=== PATIENT | male | born 1965 | race African-American/Black ===

== ENCOUNTER 2022-08-14 19:22 | Emergency (ER) | payer OTHER ==
[~2022-08-14] VITALS: Ht 180.3 cm; Wt 79.8 kg
[2022-08-14] MEDS ORDERED: TETANUS-DIPTH-ACEL PERTUSSIS 0.5ML SYR Tdap IM ONE (20:15)
[2022-08-14] MEDS ORDERED: KETOROLAC TROMETH 60MG/2ML VIAL IM ONE (20:15)
[2022-08-15] MEDS ORDERED: CEPH-510 PO (00:29)
[2022-08-15] MEDS ORDERED: AMOX-277 PO (00:29)
[2022-08-15] MEDS ORDERED: IBUP800T26 PO (00:29)
[2022-08-15 04:03] VITALS: BP 122/78
== END 2022-08-15 04:07 | disposition home or self-care (01) ==
LOC: ER 19:22
DX: L03.211 Cellulitis of face (principal)
CPT/HCPCS: 70140; 70486; 90471; 90715; 96372; 99285; J1885

== ENCOUNTER 2022-09-07 06:40 | Emergency (ER) | payer OTHER ==
[~2022-09-07] VITALS: Ht 180.3 cm; Wt 86.3 kg
[~2022-09-07 06:40] MED LIST: AMOX-277 PO; CEPH-510 PO; IBUP800T26 PO
[2022-09-07 07:49] VITALS: BP 148/87
[2022-09-07] MEDS ORDERED: ERY05OO OP (07:57)
[2022-09-07] MEDS ORDERED: BACDST PO (07:57)
== END 2022-09-07 08:12 | disposition home or self-care (01) ==
LOC: ER 06:40
DX: H00.034 Abscess of left upper eyelid (principal); H00.014 Hordeolum externum left upper eyelid; Z79.899 Other long term (current) drug therapy

== ENCOUNTER 2022-09-09 16:59 | Emergency (ER) | payer OTHER ==
[~2022-09-09] VITALS: Ht 180.3 cm; Wt 82.2 kg
[~2022-09-09 16:59] MED LIST changes: +BACDST PO; +ERY05OO OP
[2022-09-09 17:20] VITALS: BP 100/60
== END 2022-09-09 18:04 | disposition left against medical advice (07) ==
LOC: ER 16:59
DX: H57.12 Ocular pain, left eye (principal); Z53.21 Procedure and treatment not carried out due to patient leaving prior to being seen by health care provider

== ENCOUNTER 2022-11-24 00:05 | Emergency (ER) | payer OTHER ==
[~2022-11-24] VITALS: Ht 177.8 cm; Wt 86.4 kg
[~2022-11-24 00:05] MED LIST changes: -AMOX-277 PO; +AMOX875T4 PO; +IBUP-1455 PO; -IBUP800T26 PO
[2022-11-24 00:30] VITALS: BP 121/87
== END 2022-11-24 03:49 | disposition left against medical advice (07) ==
LOC: ER 00:05
DX: H57.12 Ocular pain, left eye (principal); Z53.21 Procedure and treatment not carried out due to patient leaving prior to being seen by health care provider

== ENCOUNTER 2022-12-18 18:29 | Emergency (ER) | payer OTHER ==
[~2022-12-18] VITALS: Ht 180.3 cm; Wt 78.2 kg
[2022-12-18 19:57] VITALS: BP 123/77
[2022-12-18] MEDS ORDERED: diphenhdrAMINE HCL 25 MG CAP PO ONE (20:15)
[2022-12-18] MEDS ORDERED: FAMOTIDINE 20 MG TAB PO ONE (20:15)
[2022-12-18] MEDS ORDERED: DexAMETHasone SOD PHOS 10MG/1ML VIAL INJ IM ONE (20:15)
[2022-12-18] MEDS ORDERED: DIPH25CA51 PO (20:29)
[2022-12-18] MEDS ORDERED: [UNRECOGNIZED DRUG - CODE] EX (20:29)
[2022-12-18] MEDS ORDERED: PRED20TA2 PO (20:29)
[2022-12-18] MEDS ORDERED: FAMO20TA10 PO (20:29)
[2022-12-18] MEDS ORDERED: DOXY-286 PO (20:29)
== END 2022-12-18 20:50 | disposition home or self-care (01) ==
LOC: ER 18:29
DX: L30.9 Dermatitis, unspecified (principal); Z76.0 Encounter for issue of repeat prescription; Z88.2 Allergy status to sulfonamides
CPT/HCPCS: 96372; 99283; J1100

== ENCOUNTER 2022-12-25 07:30 | Emergency (ER) | payer OTHER ==
[~2022-12-25] VITALS: Ht 180.3 cm; Wt 79.5 kg
[~2022-12-25 07:30] MED LIST changes: +DIPH25CA51 PO; +DOXY-286 PO; +FAMO20TA10 PO; +PRED20TA2 PO; +[UNRECOGNIZED DRUG - CODE] EX
[2022-12-25 07:40] VITALS: BP 134/80
[2022-12-25] MEDS ORDERED: TRIA0.02 TOP (08:28)
== END 2022-12-25 08:42 | disposition home or self-care (01) ==
LOC: ER 07:30
DX: L20.9 Atopic dermatitis, unspecified (principal)

== ENCOUNTER 2023-01-04 06:18 | Emergency (ER) | payer OTHER ==
[~2023-01-04] VITALS: Ht 180.3 cm; Wt 80.0 kg
[~2023-01-04 06:18] MED LIST changes: +TRIA0.02 TOP
[2023-01-04 08:24] VITALS: BP 141/89
[2023-01-04] MEDS ORDERED: HYD25TP TOP (08:31)
== END 2023-01-04 08:36 | disposition home or self-care (01) ==
LOC: ER 06:18
DX: L29.9 Pruritus, unspecified (principal); Z79.1 Long term (current) use of non-steroidal anti-inflammatories (NSAID); Z79.899 Other long term (current) drug therapy

== ENCOUNTER 2023-01-26 06:18 | Emergency (ER) | payer OTHER ==
[~2023-01-26] VITALS: Ht 180.3 cm; Wt 81.0 kg
[~2023-01-26 06:18] MED LIST changes: +HYD25TP TOP
[2023-01-26] MEDS ORDERED: NAP500T PO (07:53)
[2023-01-26] MEDS ORDERED: CYCL-838 PO (07:53)
[2023-01-26 08:40] VITALS: BP 122/88; PULSE 120; RESP 20; TEMP 98.4; O2SAT 96
== END 2023-01-26 08:42 | disposition home or self-care (01) ==
LOC: ER 06:18
DX: S33.5XXA Sprain of ligaments of lumbar spine, initial encounter (principal); F31.9 Bipolar disorder, unspecified; F20.9 Schizophrenia, unspecified; Z79.899 Other long term (current) drug therapy; W18.39XA Other fall on same level, initial encounter; Y93.89 Activity, other specified; Y92.89 Other specified places as the place of occurrence of the external cause; Y99.8 Other external cause status

== ENCOUNTER 2023-02-16 06:35 | Emergency (ER) | payer OTHER ==
[~2023-02-16] VITALS: Ht 180.3 cm; Wt 81.9 kg
[~2023-02-16 06:35] MED LIST changes: +CYCL-838 PO; +NAP500T PO
[2023-02-16 07:23] VITALS: BP 129/79; PULSE 102; RESP 18; TEMP 97.9; O2SAT 96
[2023-02-16] MEDS ORDERED: CEPH500C PO (07:26)
== END 2023-02-16 07:33 | disposition home or self-care (01) ==
LOC: ER 06:35
DX: S61.411A Laceration without foreign body of right hand, initial encounter (principal); W18.2XXA Fall in (into) shower or empty bathtub, initial encounter; Y93.89 Activity, other specified; Y92.89 Other specified places as the place of occurrence of the external cause; Y99.8 Other external cause status

== ENCOUNTER 2023-03-12 18:52 | Emergency (ER) | payer OTHER ==
[~2023-03-12] VITALS: Ht 180.3 cm; Wt 77.2 kg
[~2023-03-12 18:52] MED LIST changes: +CEPH500C PO
[2023-03-12 20:13] VITALS: BP 126/74; PULSE 109; O2SAT 96
[2023-03-12 20:39] VITALS: RESP 20
[2023-03-12] MEDS ORDERED: CEPH500C PO (21:12)
[2023-03-12] MEDS ORDERED: MUPI2OIN2 EX (21:12)
[2023-03-12] MEDS ORDERED: IBUP1TAB5 PO (21:12)
[2023-03-12] MEDS ORDERED: TETANUS-DIPTH-ACEL PERTUSSIS 0.5ML SYR Tdap IM ONE (21:15)
[2023-03-12] MEDS ORDERED: LIDOCAINE 1% HCL (LOCAL ANESTH.) INJ 20ML MDV ID ONE (21:15)
== END 2023-03-12 21:24 | disposition home or self-care (01) ==
LOC: ER 18:52
DX: S41.112A Laceration without foreign body of left upper arm, initial encounter (principal); Z79.1 Long term (current) use of non-steroidal anti-inflammatories (NSAID); Z79.2 Long term (current) use of antibiotics; Z79.899 Other long term (current) drug therapy; W10.9XXA Fall (on) (from) unspecified stairs and steps, initial encounter; Y93.89 Activity, other specified; Y92.89 Other specified places as the place of occurrence of the external cause; Y99.8 Other external cause status
CPT/HCPCS: 12004; 90471; 90715; 99283; J2001

== ENCOUNTER 2023-03-25 16:05 | Emergency (ER) | payer OTHER ==
[~2023-03-25] VITALS: Ht 180.3 cm; Wt 78.0 kg
[~2023-03-25 16:05] MED LIST changes: +IBUP1TAB5 PO; +MUPI2OIN2 EX
[2023-03-25] MEDS ORDERED: KETOROLAC TROMETH 60MG/2ML VIAL IM ONE (16:45)
[2023-03-25] MEDS ORDERED: IBUP-1455 PO (16:59)
[2023-03-25] MEDS ORDERED: BAC09TP TOP (16:59)
[2023-03-25] MEDS ORDERED: NEOMYCIN-BACITRACIN-POLYM UNITDOSE PKG TOP OINT TOP ONE (17:00)
[2023-03-25 17:45] VITALS: BP 151/93; PULSE 103; RESP 17; TEMP 97.8; O2SAT 96
== END 2023-03-25 17:51 | disposition home or self-care (01) ==
LOC: ER 16:05
DX: S00.01XA Abrasion of scalp, initial encounter (principal); F20.9 Schizophrenia, unspecified; Z48.02 Encounter for removal of sutures; W22.8XXA Striking against or struck by other objects, initial encounter; Y93.55 Activity, bike riding; Y92.89 Other specified places as the place of occurrence of the external cause; Y99.8 Other external cause status
CPT/HCPCS: 96372; 99283; J1885